=== PATIENT | female | born 1960 | race Hispanic/Latino ===

== ENCOUNTER 2023-04-12 22:57 | Observation (INO) | payer OTHER ==
[~2023-04-12] VITALS: Ht 160 cm; Wt 83.8 kg
[2023-04-12 23:54] LABS: BASOPHILS # (AUTO) 0.03 K/uL (0.00-0.20); BASOPHILS % (AUTO) 0.5 % (0.0-5.0); EOSINOPHILS # (AUTO) 0.06 K/uL (0.00-0.70); IMMATURE GRANULOCYTE ABSOLUTE 0.02 K/uL (0-1); LYMPHOCYTES # (AUTO) 2.8 K/uL (1.0-4.8); LYMPHOCYTES % (AUTO) 45.6 % (21.0-51.0); MEAN CORPUSCULAR HEMOGLOBIN 31.9 pg (27.0-33.0); MEAN CORPUSCULAR HGB CONC 35.1 g/dL (32.0-36.0); MEAN CORPUSCULAR VOLUME 90.9 fL (79-99); MONOCYTES # (AUTO) 0.4 K/uL (0.1-1.0); MONOCYTES % (AUTO) 6.6 % (3.0-13.0); NEUTROPHILS # (AUTO) 2.9 K/uL (1.8-7.7); PLATELET COUNT (AUTO) 219 K/uL (130-400); RED BLOOD CELL COUNT(AUTO) 3.85 MIL/uL (4.00-5.50); RED CELL DISTRIBUTION WIDTH 12.1 % (11.0-15.5); WHITE BLOOD COUNT (AUTO) 6.2 K/uL (4.8-10.8)
[2023-04-13 00:16] LABS: INR <= 0.93 (0.85-1.15); PROTHROMBIN TIME 10.3 SEC (9.6-11.6)
[2023-04-13 00:18] LABS: PARTIAL THROMBOPLASTIN TIME 25.4 SEC (26.3-35.5)
[2023-04-13 00:29] LABS: B-TYPE NATRIURETIC PEPTIDE 11 pg/mL (0-100)
[2023-04-13 01:17] LABS: CREATININE 0.8 mg/dL (0.5-1.5); POTASSIUM 3.7 mmol/L (3.5-5.1)
[2023-04-13 01:21] LABS: ALBUMIN 3.6 g/dL (3.5-5.0); BILIRUBIN,TOTAL 0.6 mg/dL (0.2-1.0); TOTAL PROTEIN, SERUM 7.5 g/dL (6.0-8.3)
[2023-04-13 01:26] LABS: APPEARANCE,URINE CLEAR (CLEAR); BILIRUBIN,URINE NEGATIVE (NEGATIVE); COLOR,URINE LIGHT-YELLOW (YELLOW); GLUCOSE, URINE (UA) 150 mg/dL (NEGATIVE); KETONES,URINE NEGATIVE (NEGATIVE); LEUKOCYTE ESTERASE ,URINE NEGATIVE Leu/uL (NEGATIVE); NITRATE,URINE NEGATIVE (NEGATIVE); OCCULT BLOOD,URINE NEGATIVE (NEGATIVE); PH,URINE 5.5 (5.0-8.0); PROTEIN,URINE NEGATIVE (NEGATIVE); UROBILINOGEN,URINE 0.2 mg/dL (0.2-1.0)
[2023-04-13 01:29] LABS: ADD UA MICROSCOPIC YES
[2023-04-13 01:31] LABS: RBC,URINE 0-1 /HPF (0-1); SQUAMOUS EPITHELIAL CELL,UR FEW /HPF (0-2); WBC,URINE 0-1 /HPF (0-1)
[2023-04-13] MEDS ORDERED: ASPI-1005 PO (02:31)
[2023-04-13] MEDS ORDERED: NITR.4 SL (02:31)
[2023-04-13] MEDS ORDERED: ONDANSETRON 4MG INJ IVP PRN (03:00)
[2023-04-13 04:05] VITALS: BP 136/77; PULSE 58; RESP 16
[2023-04-13] MEDS: ACETAMINOPHEN 325 MG TAB PO PRN (04:23)
[2023-04-13 08:00] VITALS: BP 133/71; PULSE 56; RESP 18; O2SAT 99
[2023-04-13] MEDS: ASPIRIN 81 MG EC TAB PO SCH (09:11)
[2023-04-13] MEDS: ENOXAPARIN SODIUM 40 MG/0.4 ML SYRINGE SQ SCH (09:12)
[2023-04-13 12:00] VITALS: BP 115/62; PULSE 52; RESP 18
[2023-04-13 16:00] VITALS: BP 136/58; PULSE 57; RESP 16
[2023-04-13 20:00] VITALS: O2SAT 99
[2023-04-13] MEDS: ATORVASTATIN 40 MG TABLET PO SCH (21:02)
[2023-04-14] VITALS: BP_SYST 119; BP_SYST 97; BP_DIAS 55; BP_DIAS 56; PULSE 52; PULSE 63; RESP 18; RESP 20
[2023-04-14 01:36] LABS: BASOPHILS # (AUTO) 0.01 K/uL (0.00-0.20); BASOPHILS % (AUTO) 0.2 % (0.0-5.0); EOSINOPHILS # (AUTO) 0.08 K/uL (0.00-0.70); EOSINOPHILS % (AUTO) 1.5 % (0.0-8.0); IMMATURE GRANULOCYTE ABSOLUTE 0.01 K/uL (0-1); LYMPHOCYTES # (AUTO) 2.8 K/uL (1.0-4.8); LYMPHOCYTES % (AUTO) 50.8 % (21.0-51.0); MEAN CORPUSCULAR HEMOGLOBIN 32.4 pg (27.0-33.0); MEAN CORPUSCULAR VOLUME 92.6 fL (79-99); MONOCYTES # (AUTO) 0.4 K/uL (0.1-1.0); MONOCYTES % (AUTO) 7.6 % (3.0-13.0); NEUTROPHILS # (AUTO) 2.2 K/uL (1.8-7.7); NEUTROPHILS % (AUTO) 39.7 % (40.0-77.0); PLATELET COUNT (AUTO) 191 K/uL (130-400); RED BLOOD CELL COUNT(AUTO) 3.67 MIL/uL (4.00-5.50); RED CELL DISTRIBUTION WIDTH 12.2 % (11.0-15.5); WHITE BLOOD COUNT (AUTO) 5.4 K/uL (4.8-10.8)
[2023-04-14 01:48] LABS: CREATININE 0.8 mg/dL (0.5-1.5); MAGNESIUM 1.8 mg/dL (1.80-2.40)
[2023-04-14 04:00] VITALS: BP 129/64; PULSE 54; RESP 19
[2023-04-14 08:00] VITALS: BP 94/50; PULSE 56; RESP 16; O2SAT 99
[2023-04-14] MEDS: REGADENOSON 0.4 MG/5 ML PF SYG IVP SCH (10:00)
[2023-04-14 11:35] VITALS: BP 129/60; PULSE 63; RESP 18
[2023-04-14 16:30] VITALS: BP_SYST 120; BP_SYST 127; BP_DIAS 65; BP_DIAS 71; PULSE 58; PULSE 76; RESP 18
[2023-04-14 20:00] VITALS: BP 125/63; PULSE 64; RESP 18; O2SAT 99
[2023-04-14] MEDS: INSULIN HUMULIN R 100 UNIT/ML 3ML SQ SCH (20:42)
[2023-04-14] MEDS ORDERED: NITROGLYCERIN 0.4 MG SL TAB SL SCH (23:00)
[2023-04-15] VITALS: BP 110/65; PULSE 64; RESP 20
[2023-04-15 04:00] VITALS: BP 108/59; PULSE 60; RESP 20
[2023-04-15 04:44] LABS: BASOPHILS # (AUTO) 0.02 K/uL (0.00-0.20); BASOPHILS % (AUTO) 0.3 % (0.0-5.0); EOSINOPHILS # (AUTO) 0.09 K/uL (0.00-0.70); EOSINOPHILS % (AUTO) 1.6 % (0.0-8.0); HEMATOCRIT 34.2 % (36-48); IMMATURE GRANULOCYTE ABSOLUTE 0.01 K/uL (0-1); LYMPHOCYTES # (AUTO) 2.7 K/uL (1.0-4.8); LYMPHOCYTES % (AUTO) 47.6 % (21.0-51.0); MEAN CORPUSCULAR HEMOGLOBIN 31.9 pg (27.0-33.0); MEAN CORPUSCULAR HGB CONC 34.8 g/dL (32.0-36.0); MEAN CORPUSCULAR VOLUME 91.7 fL (79-99); MONOCYTES # (AUTO) 0.5 K/uL (0.1-1.0); MONOCYTES % (AUTO) 9.3 % (3.0-13.0); NEUTROPHILS # (AUTO) 2.4 K/uL (1.8-7.7); PLATELET COUNT (AUTO) 206 K/uL (130-400); RED BLOOD CELL COUNT(AUTO) 3.73 MIL/uL (4.00-5.50); RED CELL DISTRIBUTION WIDTH 12.3 % (11.0-15.5); WHITE BLOOD COUNT (AUTO) 5.7 K/uL (4.8-10.8)
[2023-04-15 05:02] LABS: ALBUMIN 3.2 g/dL (3.5-5.0); BILIRUBIN,TOTAL 0.8 mg/dL (0.2-1.0); CREATININE 0.8 mg/dL (0.5-1.5); MAGNESIUM 1.9 mg/dL (1.80-2.40); POTASSIUM 4.1 mmol/L (3.5-5.1); TOTAL PROTEIN, SERUM 6.7 g/dL (6.0-8.3)
[2023-04-15 08:00] VITALS: BP 112/61; PULSE 61; RESP 19; O2SAT 97
[2023-04-15 12:00] VITALS: BP 125/63; PULSE 64; RESP 17
== END 2023-04-15 15:10 | disposition home or self-care (01) ==
LOC: EDH 22:57 → EDHIP 04-13 02:44 → INTOOBSV 04-13 02:44 → 4BH 04-13 03:20
PROVIDERS: ADMIT Internal Medicine Infectious Disease; ATTEND Internal Medicine Infectious Disease
DX: I25.119 Atherosclerotic heart disease of native coronary artery with unspecified angina pectoris (principal); I10 Essential (primary) hypertension; E78.5 Hyperlipidemia, unspecified; E11.9 Type 2 diabetes mellitus without complications; E66.9 Obesity, unspecified; E03.9 Hypothyroidism, unspecified; R45.851 Suicidal ideations; Z87.891 Personal history of nicotine dependence; Z90.49 Acquired absence of other specified parts of digestive tract; Z95.5 Presence of coronary angioplasty implant and graft; Z91.199 Patient's noncompliance with other medical treatment and regimen due to unspecified reason; Z79.899 Other long term (current) drug therapy
CPT/HCPCS: 99285; 82550 ×2; 80053 ×2; 83880; 85025 ×3; 85610; 85730; 36415 ×4; 71045; 93005; 96372 ×3; 84484 ×5; 82948 ×10; 81001; 93306; 83735 ×2; 80048; 93017; 78452; J1650 ×3; J2785; G0378 ×27; J1815; A9500 ×2; 96374

== ENCOUNTER 2023-09-02 14:46 | Emergency (ER) | payer OTHER, MEDICAID ==
[~2023-09-02] VITALS: Ht 160 cm; Wt 70.3 kg
[~2023-09-02 14:46] MED LIST: ASPI-1005 PO; NITR.4 SL
[2023-09-02] MEDS: MORPHINE 2 MG SYG IVP ONE (16:18)
[2023-09-02] MEDS: ONDANSETRON 4MG INJ IVP ONE (16:19)
[2023-09-02] MEDS ORDERED: BACL15TA PO (17:33)
[2023-09-02] MEDS ORDERED: KETO10TA2 PO (17:33)
[2023-09-02 18:02] VITALS: BP 126/64; PULSE 63; RESP 18; O2SAT 99
== END 2023-09-02 18:43 | disposition home or self-care (01) ==
LOC: EDH 14:46
DX: S46.911A Strain of unspecified muscle, fascia and tendon at shoulder and upper arm level, right arm, initial encounter (principal); S80.01XA Contusion of right knee, initial encounter; E11.9 Type 2 diabetes mellitus without complications; E78.00 Pure hypercholesterolemia, unspecified; I10 Essential (primary) hypertension; Z79.899 Other long term (current) drug therapy; Z79.82 Long term (current) use of aspirin; Z90.49 Acquired absence of other specified parts of digestive tract; Z98.890 Other specified postprocedural states; V89.2XXA Person injured in unspecified motor-vehicle accident, traffic, initial encounter; Y93.89 Activity, other specified; Y92.89 Other specified places as the place of occurrence of the external cause; Y99.8 Other external cause status
CPT/HCPCS: 99285; 70450; 96374; 96375; 73080; 73090; 73060; 73502; 73560; 73030; 72125; 71250; 74176; J2270; J2405

== ENCOUNTER 2024-02-06 20:29 | Emergency (ER) | payer OTHER, MEDICARE ==
[~2024-02-06] VITALS: Ht 160 cm; Wt 88.9 kg
[~2024-02-06 20:29] MED LIST changes: +BACL15TA PO; +KETO10TA2 PO
--- NOTE | 2024-02-06 21:32 | HMCIMG ---
FOOT COMP 3+VWS RT INDICATION: FALL, BRUISING TECHNIQUE: FOOT COMP 3+VWS RT. FINDINGS/IMPRESSION: Nondisplaced fracture of the base of the fifth metatarsal. There is diffuse soft tissue swelling No radiopaque foreign body is identified.
--- NOTE | 2024-02-06 22:23 | NUR ---
BOOT APPLIED TO PATIENT AND CRUTCHES DISPENSED. CRUTCH TRAINING PROVIDED.
[2024-02-06 22:24] VITALS: BP 137/76; PULSE 78; RESP 20; TEMP 98; O2SAT 98
--- NOTE | 2024-02-06 22:43 | ERN ---
ED Note History of Present Illness Stated Complaint: LEFT FOOT, FALL Chief Complaint: FOOT INJURY/PAIN Time Seen by MD: 20:37 Time Seen by Midlevel: 20:40 Dictation: 63-year-old female came in for right foot pain and for rolling it. Patient states she did not fall the way to the ground. No other complaints at this time. Allergies: Coded Allergies: No Known Drug Allergies (Unverified Allergy, 10/17/11) Home Meds Active Scripts Baclofen (Baclofen) 15 Mg Tablet, 15 MG PO DAILYDINNER for 7 Days, #7 TAB Prov:DARRELL VELEZ 09/02/23 Ketorolac Tromethamine (Ketorolac Tromethamine) 10 Mg Tablet, 10 MG PO BID for 5 Days, #10 TAB Prov:DARRELL VELEZ 09/02/23 Nitroglycerin (Nitrostat/Nitroquick) 0.4 Mg Sltb, 0.4 MG SL AD, #20 TAB.SL If you develop chest pain take 1 tablet sublingual every 5 minutes as needed no more than 3 pills Prov:GERBER ARCHIBALD MD 04/13/23 Aspirin (ASPIRIN 81MG CHEW TAB) 81 Mg Tab.chew, 81 MG PO DAILY, #30 TAB.CHEW Prov:GERBER ARCHIBALD MD 04/13/23 Past Medical History Past Medical History: Diabetes-Type I, Diabetes-Type II, High Cholesterol, Hypertension, Hyperthyroid Surgical History: Cholecystectomy, Other, Surgical History Other: L SHOULDER SX, CARDIAC ABLASION Family History: DM, HTN Social History: Negative, Lives with family Review of System Dictation Constitutional: Negative for fever,chills, and weight loss Eyes: Negative for injury, pain,redness, and discharge ENT: Negative for injury,pain or swelling Cardiovascular: Negative for chest pain, palpitations, and edema Respiratory: Negative for shortness of breath, cough, and wheezing, Abdomen/GI: Negative for abdominal pain, nausea, vomiting, diarrhea, and constipation Back: Negative for injury and pain : Negative for injury, bleeding and discharge MS/Extremity: Right foot pain Skin: Negative for rash, and discoloration Neuro: Negative for headache, weakness, numbness, tingling, and seizure Psych: Negative for suicide ideation, homicidal ideation, and hallucinations Review of Systems: was completed Initial Vital Sign VS Vital Signs Date Time Temp Pulse Resp B/P (MAP) Pulse Ox O2 Delivery O2 Flow Rate FiO2 02/06/24 20:31 97.5 90 20 163/77 98 Room Air 02/06/24 20:33 0 21 Physical Exam Dictation General: awake, alert, NAD Head/Face: Normocephalic, atraumatic Eyes: PERRL, EOMI, vision at baseline ENT: oral cavity clear, TMs clear, no signs of infection Neck: Trachea midline, supple, no nuchal rigidity Cardiovascular: RRR, normal S1/S2, No MRGs, no JVD Respiratory: CTAB, no respiratory distress, No rales or wheezes Abdomen: Soft, non-tender, non-distended, normal bowel sounds, no guarding or rebound. Skin: Warm, dry, normal turgor, no rash MS/Extremity: Pulses equal, no cyanosis, neurovascular intact, FROM, ecchymosis noted to the right lateral aspect of the foot, minimal swelling. Neuro: COAx4, GCS 15, strength 5/5, CN 2-12 intact, normal cerebellar exam, normal gait, Psych: Normal behavior, mood, and affect normal Results (Laboratory/Radiology) X-RAY Comment: [place] [id number] [address] IMAGING REPORT Signed PATIENT: VON CHANDLER MR#: [id number] : 1960 SEX: F AGE: 63 LOCATION: [facility] ORDER 40 STATUS: REG ER REPORT#: [id number] SERVICE 39 REASON: FALL, BRUISING ORDERING PHYSICIAN: NIYA OSULLIVAN MD PROCEDURE: FT 3VW RT - FOOT COMP 3+VWS RT FOOT COMP 3+VWS RT INDICATION: FALL, BRUISING TECHNIQUE: FOOT COMP 3+VWS RT. FINDINGS/IMPRESSION: Nondisplaced fracture of the base of the fifth metatarsal. There is diffuse soft tissue swelling No radiopaque foreign body is identified. DICTATED BY: ADWOA HARRIS MD DATE: 02/06/242128 ELECTRONICALLY SIGNED BY: ADWOA HARRIS MD DATE: 12/14/24 2132 ED Course ED Course Orders Procedure Category Date Status Time Foot Comp 3+Vws Rt RAD 02/06/24 Resulted 20:40 *Nursing CPOE 02/06/24 Verified Communication: 22:37 Crutches W/Training CPOE 02/06/24 Verified (Er) 22:37 Vital Signs Date Time Temp Pulse Resp B/P (MAP) Pulse Ox O2 Delivery O2 Flow Rate FiO2 02/06/24 22:24 98.1 78 20 137/76 98 Room Air* 0 21 02/06/24 21:39 98.8 71 18 132/74 98 Room Air* 0 21 02/06/24 20:33 98.1 78 20 141/87 98 Room Air* 0 21 02/06/24 20:31 97.5 90 20 163/77 98 Room Air Medical Decision Making MDM MDM: 63-year-old female came in for right foot pain and for rolling it. Patient states she did not fall the way to the ground. No other complaints at this time. X-ray shows fracture to the base of the 5th metatarsal. Applied a boot, gave crutches, started the patient on weight-bearing until she sees Or thopedics. Gave patient referral to see Dr. Bardales. Educated follow up with her on Thursday. To take Tylenol or Motrin [id number] for pain management and to keep leg elevated when possible to reduce swelling and help with pain. Patient verbalized understanding, answered all questions. Differential diagnosis: Foot sprain, foot strain, closed metatarsal fracture Rationale: Tests considered and ordered secondary to shared decision making include: Previous outside records reviewed: Old ER visits. Risk of complication and/or morbidity or mortality of patient management: None Medications-Per medication reconciliation Need for hospitalization: Patient does not meet criteria for hospitalization. Need for emergency major/minor surgery: No There are no social concerns with this patient. Prescription drug management Prescriptions will include symptomatic care Patient's prior external medical records from other ER visits were reviewed by me as indicated. Prior testing and results from previous visits were reviewed. Prior tests were taken into account with medical decision making and resource utilization, independent historian/historians were used to obtain complete medical history. I independently interpreted the test that were performed, results were reviewed by me and considered findings on radiology if ordered. Medical management and examination interpretation discussions were had by me with other qualified healthcare professionals as indicated for the patient's care. DX & DISP Disposition: Discharge Departure Impression: Primary Impression: Fracture of 5th metatarsal Condition: Stable Additional Instructions: follow up with Orthopedic, do not bear weight on the right foot, use crutches, and keep boot on. Do not bear weight until you are cleared by the specialist. Follow up with Dr. Bardales on Thursday. Return to the ER if any symptoms worsen. Elevate leg when possible to help with swelling. Take Tylenol or Motrin [id number] for pain management. Follow up with Dr. Lakshmi Bardales Referrals: TJ YANG MD (PCP) Time of Disposition: 22:42 I have reviewed the case, and I agree with, Diagnosis and Plan JAMIE BARTH NP Feb 06, 2024 22:43
== END 2024-02-06 22:52 | disposition home or self-care (01) ==
LOC: EDH 20:29
DX: S92.354A Nondisplaced fracture of fifth metatarsal bone, right foot, initial encounter for closed fracture (principal); E11.9 Type 2 diabetes mellitus without complications; E78.00 Pure hypercholesterolemia, unspecified; I10 Essential (primary) hypertension; Z79.82 Long term (current) use of aspirin; Z79.899 Other long term (current) drug therapy; Z90.49 Acquired absence of other specified parts of digestive tract; Z98.890 Other specified postprocedural states; W18.39XA Other fall on same level, initial encounter; Y93.89 Activity, other specified; Y92.89 Other specified places as the place of occurrence of the external cause; Y99.8 Other external cause status
CPT/HCPCS: 73630; 99284